=== PATIENT | male | born 1935 | race Caucasian/White ===

== ENCOUNTER 2017-02-24 15:37 | Inpatient (IN) | payer OTHER ==
[~2017-02-24] VITALS: Ht 170.2 cm; Wt 81.6 kg
[2017-02-24 15:40] VITALS: BP 163/96
--- NOTE | 2017-02-24 15:44 | NUR ---
81/M MAKAYLA C/O SOB x TODAY @ 0405. EMS STATES PT WAS SOB ON SCENE. PT WAS GIVEN x2 ALBUTEROL NEBULIZED TREATMENT AND STARTED ON CPAP EN ROUTE. PT HAS 20 GA IV RAC. PT TACYPNIC AT 29 BREATHS PER MIN, ACCESOTY MUSCLE USE, TRIPOD. LS-[place] WHEEZES AND TIGHT. SKIN WARM/DRY. REPORTS BEING INTUBATED MANY YEARS AGO FOR SAME PROBLEM. DENIES ANY CHEST PAIN. MILD LE EDEMA 1-2+, PT DENIES ANY CHF. ER MD AT BEDSIDE ROSE RT. PT PLACED ON CPAP. HX: ASTHMA AND HTN MEDS: ALBUTEROL
[2017-02-24] MEDS ORDERED: TERBUTALINE 1 MG/ML VIAL SUBQ ONE (15:45)
[2017-02-24] MEDS ORDERED: methylPREDNISolone SS 125 MG in WATER STERILE 2 ML IV ONE (15:45)
--- NOTE | 2017-02-24 15:45 | NUR ---
PT PLACED ON BIPAP SETTINGS ST IPAP 14 EPAP 6, R 10 AND FIO2 30%. PROTECTA-GEL PLACED UNDER MASK FOR SKIN PROTECTION. AWARE OF BIPAP SETTINGS. BIPAP IS PLUGGED INTO RED OUTLET WITH ALARMS ON AND FUNCTIONING.
[2017-02-24] MEDS ORDERED: ALBUTEROL SULFATE/IPRATROPIU 3 ML SOL IH ONE (16:15)
[2017-02-24 16:27] LABS: BASOPHILS # (AUTO) 0.1 K/uL (0.00-0.22); BASOPHILS % (AUTO) 0.7 % (0.0-2.0); EOSINOPHILS % (AUTO) 0.3 % (0.0-4.0); HEMATOCRIT 37.8 % (36-52); HEMOGLOBIN 12.4 g/dL (12.0-18.0); LYMPHOCYTES # (AUTO) 0.5 K/uL (2.0-11.5); LYMPHOCYTES % (AUTO) 4.1 % (20.5-51.1); MEAN CORPUSCULAR HEMOGLOBIN 31 pg (27-31); MEAN CORPUSCULAR HGB CONC 33 g/dL (33-37); MEAN CORPUSCULAR VOLUME 95 fL (80-94); MONOCYTES # (AUTO) 0.2 K/uL (0.8-1.0); MONOCYTES % (AUTO) 1.4 % (1.7-9.3); NEUTROPHILS # (AUTO) 10.8 K/uL (1.8-7.7); NEUTROPHILS % (AUTO) 93.5 % (42.2-75.2); PLATELET COUNT (AUTO) 214 K/uL (140-450); RED BLOOD CELL COUNT(AUTO) 3.98 MIL/uL (4.20-6.10); RED CELL DISTRIBUTION WIDTH 15.3 % (11.6-13.7); WHITE BLOOD COUNT (AUTO) 11.6 K/uL (4.8-10.8)
[2017-02-24] MEDS ORDERED: NAPR-54 PO ×2 (16:48)
[2017-02-24] MEDS ORDERED: FURO-572 PO (16:48)
[2017-02-24] MEDS ORDERED: PRED10TA5 PO (16:48)
[2017-02-24 16:49] LABS: PROTHROMBIN TIME 10.8 secs (10.8-13.4)
[2017-02-24] MEDS ORDERED: ACET-2619 PO (16:50)
[2017-02-24 16:54] LABS: ANION GAP 19.2 (8-16); ASPARTATE AMINOTRANSFERASE 13 U/L (15-37); CARBON DIOXIDE 22.8 mmol/L (21-32); CHLORIDE 106 mmol/L (98-107); CREATININE 1.6 mg/dL (0.7-1.3); GLUCOSE 210 mg/dL (74-106); SODIUM SERUM 144 mmol/L (136-145); TOTAL BILIRUBIN 0.6 mg/dL (0.0-1.0); UREA NITROGEN, BLOOD 27 mg/dL (7-18)
[2017-02-24] MEDS ORDERED: ACT30 PO (16:55)
[2017-02-24] MEDS ORDERED: NACL 0.9% 1,000 ML IV ONE ×2 (17:25)
[2017-02-24] MEDS ORDERED: CEFEPIME 1,000 MG in DEXTROSE 5% 50 ML IV ONE (17:25)
[2017-02-24] MEDS ORDERED: AZITHROMYCIN 500 MG in DEXTROSE 5% 250 ML IV ONE (17:25)
--- NOTE | 2017-02-24 17:41 | NUR ---
PT SITTING UP IN BED, REPORTS FEELINGBETTER, BUT THAT CPAP IS BOTHERING HIM, INFORMED HIM THATHE CAN NOT TAKE IT OUT-VERBALIZED UNDERSTANDING.
[2017-02-24] MEDS ORDERED: CEFEPIME 1,000 MG VIAL ONE (17:52)
[2017-02-24 17:53] VITALS: BP 125/53
[2017-02-24] MEDS ORDERED: AZITHROMYCIN 500 MG INJ VIAL IV ONE (17:53)
--- NOTE | 2017-02-24 18:21 | NUR ---
IV ANTIBIOTICS INFUSING WELL VIA PUMP, TOLERATING WELL.
[2017-02-24 18:49] VITALS: BP 140/59
--- NOTE | 2017-02-24 18:53 | NUR ---
PT RECEIVED FROM DAYSHIFT ON NOTED BIPAP SETTINGS. PT AWAKE AND ALERT WEARING LARGE FULL FACE MASK WITH PRO-GEL UNDER MASK. BREATH SOUNDS COARSE SCATTERED EXP WHEEZING, NON PROD COUGH. NO DISTRESS NOTED. BIPAP ALARMS ON AND AUDIBLE. BIPAP PLUGGED INTO RED ELECTRICAL OUTLET. WILL CONTINUE TO MONITOR.
[2017-02-24 19:00] LABS: BILIRUBIN,URINE NEGATIVE (NEGATIVE); BLOOD, URINE NEGATIVE (NEGATIVE); COLOR,URINE YELLOW (YELLOW); LEUKOCYTE ESTERASE ,URINE NEGATIVE (NEGATIVE); NITRITE, URINE NEGATIVE (NEGATIVE); PH,URINE 5.5 (5.0-9.0); UGLUCOSE NEGATIVE (NEGATIVE)
[2017-02-24 19:03] LABS: APPEARANCE,URINE CLEAR (CLEAR)
--- NOTE | 2017-02-24 19:25 | NUR ---
RECEIVED FROM ER PER TEMO AWAKE AND ALERT. DX. OF ASTHMA EXACERBATION RESPIRATORY FAILURE AND LACTIC ACIDOSIS. PT. PLACED ON BIPAP BY RESPIRATORY THERAPIST. PT. SPEAKS TURKMEN AND FAROESE. IVF SITE TO [facility] WITH IVF ANTIBIOTIC INFUSING. SKIN INTACT. TELEMETRY MONITORING. ORIENTED TO CALL LIGHT USE AND RAPID RESPONSE . BED ALARM ON.
[2017-02-24] MEDS ORDERED: NACL 0.9% 1,000 ML IV SCH (19:44)
[2017-02-24] MEDS ORDERED: HYDROcodone/APAP 7.5/325 MG 1 TAB PO PRN (19:45)
[2017-02-24] MEDS ORDERED: ONDANSETRON 4 MG/2 ML VIAL IVP PRN (19:45)
[2017-02-24] MEDS ORDERED: DEXTROSE 50% 50 ML SYR IVP PRN (19:45)
[2017-02-24] MEDS: ALBUTEROL SULFATE/IPRATROPIU 3 ML SOL IH SCH (20:05)
--- NOTE | 2017-02-24 20:07 | NUR ---
LACTIC ACID 4.5 AND RESIDENT MD LOU AWARE OF IT. RESPIRATORY THERAPIST IN HERE AND GIVING ALBUTEROL BREATHING TREATMENT ORDERED. 02 SAT 99% ,RATE 10 PER BIPAP. HR 82. CALL LIGHT WITH IN REACH. BED ALARM ON.
[2017-02-24] MEDS: DOCUSATE SODIUM 100 MG GELCAP PO SCH (20:15)
[2017-02-24] MEDS: methylPREDNISolone SS 125 MG/2 ML VIAL IVP SCH (20:15)
[2017-02-24 20:32] LABS: BARBITURATE, URINE NEG. ng/ml (NEG <=200); BENZODIAZEPINE, URINE NEG. ng/mL (NEG <=200); CANNABINOID, URINE NEG. ng/mL (NEG <=50); COCAINE, URINE NEG. ng/mL (NEG <=300); OPIATE, URINE NEG. ng/mL (NEG <=2000); PHENCYCLIDINE SCREEN,URINE NEG. ng/mL (NEG <=25)
[2017-02-24] MEDS: BLOOD GLUCOSE MONITORING 1 DEV DEV FS SCH (20:32)
[2017-02-24] MEDS: INSULIN LISPRO SLIDING SCALE 100 UNITS/ML VIAL SUBQ PRN (20:32)
[2017-02-24 20:41] VITALS: BP 136/72
[2017-02-24 20:44] LABS: FREE T4 (FREE THYROXINE) 0.71 ng/dL (0.76-1.46); MAGNESIUM 2.1 mg/dL (1.8-2.4); PHOSPHORUS 2.8 mg/dL (2.5-4.9); THYROID STIMULATING HORMONE 0.19 uIU/mL (0.34-3.74)
[2017-02-24] MEDS ORDERED: FUROSEMIDE 100 MG/10 ML VIAL IV SCH (21:25)
--- NOTE | 2017-02-24 21:30 | NUR ---
TRANSFERRED TO ICU FOR CONTINUITY OF CARE ORDERED SHARON PEREIRA./. AWAKE ALERT AND ON BIPAP. ABLE TO VERBALIZE NEEDS WELL. TRADITIONAL CHINESE HERBALIST.
--- NOTE | 2017-02-24 21:40 | NUR ---
BIPAP CHECKED. PT AWAKE, ABG DONE ON CURRENT BIPAP SETTINGS. RESULTS CALLED TO DR LOU, NO CHANGES ORDERED.
[2017-02-24 22:35] VITALS: BP 182/136
--- NOTE | 2017-02-24 22:35 | NUR ---
RECEIVED PT FROM TELE UNIT. PT NOTED WITH SOB. AFEBRILE. ELEVATED BP. PT ABLE TO MAKE NEEDS KNOWN. PT PUT ON BIPAP. OXYGEN SATURATION AT 100%. NO SIGNS OF DISTRESS NOTED. NO C/O PAIN, AND NO C/O NAUSEA/VOMITING. PT HAS PERIPHERAL IV ON LEFT AC 20G. PULSES PALPABLE. S1+S2 HEARD. ALL SAFETY PRECAUTIONS IN PLACE. BED AT LOW POSITION. CALL LIGHT WITHIN REACH. WILL CONTINUE TO MONITOR.
[2017-02-24] MEDS: ALBUTEROL SULFATE/IPRATROPIU 3 ML SOL IH PRN (22:46)
[2017-02-24 23:35] VITALS: BP 148/77
--- NOTE | 2017-02-24 23:37 | NUR ---
BIPAP CHECKED. PT ASLEEP, SLIGHT DIM EXP WHEEZING. NO CHANGES MADE AT THIS TIME. PT TOLERATING BIPAP WELL.
[2017-02-25] VITALS (21 sets, daily range): BP systolic 98–178; BP diastolic 39–104
--- NOTE | 2017-02-25 00:15 | NUR ---
CALLED JT AND INFORMED HER THAT SPOUSE WAS TRANSFERRED TO ICU. TEL# [phone].
--- NOTE | 2017-02-25 00:21 | NUR ---
PT AWAKE. STILL ON BIPAP. VS STABLE. NO CHANGE IN CONDITION AT THIS TIME. ASKED PT, "MARIA ELENA SANTIAGO?" AND PT RESPONDED "SI."; OXYGEN SATURATION AT 96% WHILE ON BIPAP. NO C/O PAIN. NO NAUSEA AND VOMITING NOTED. ALL SAFETY PRECAUTIONS IN PLACE. WILL CONTINUE TO MONITOR PT.
--- NOTE | 2017-02-25 02:09 | NUR ---
PT SITTING ON THE FOOT OF BED. PT INSIST TO BE IN THIS POSITION FOR IT FEELS MORE COMFORTABLE. NO CHANGE IN CONDITION AT THIS TIME. BREATHING WELL AND NO C/O OF DIFFICULTY. NO S/SX RESPIRATORY DISTRESS NOTED. STILL ON BIPAP WITH O2 SATURATION CURRENTLY AT 98%. VS STABLE AT THIS TIME. SINUS RHYTHM ON MONITOR. ALL SAFETY PRECAUTIONS IN PLACE. CALL LIGHT WITHIN REACH. WILL CONTINUE TO MONITOR.
[2017-02-25] MEDS: ALBUTEROL SULFATE/IPRATROPIU 3 ML SOL IH PRN ×2 (02:57→20:28)
--- NOTE | 2017-02-25 04:13 | NUR ---
CALLED DR LOU TO INFORM THAT RESIDENT HAS BEEN ASKING FOR BREATHING TREATMENT MORE FREQUENTLY. LAST BREATHING TREATMENT GIVEN ABOUT 1 HR AGO. PER RT BREATHING TX CANNOT BE GIVEN. PT OXYGEN SATURATION IS 93% AND RR 22. WILL RECEIVED NEW ORDER. WILL CONTINUE TO MONITOR PT.
--- NOTE | 2017-02-25 04:28 | NUR ---
DR BERKOWITZ AT BEDSIDE TO SEE PT. GAVE UPDATE REGARDING PT. WILL FOLLOW-UP WITH ANY NEW ORDER.
[2017-02-25] MEDS ORDERED: LORazepam 1 MG TAB ONE (04:31)
[2017-02-25] MEDS: LORazepam 1 MG TAB PO PRN ×2 (04:32→21:00)
[2017-02-25] MEDS: methylPREDNISolone SS 125 MG/2 ML VIAL IVP SCH ×2 (04:32→13:39)
--- NOTE | 2017-02-25 04:35 | NUR ---
PT NOTED TO HAVE INCREASED ANXIETY. SCHEDULED MEDICATIONS ADMINISTERED. NO CHANGE IN CONDITION AT THIS TIME. VS STABLE. WILL CONTINUE TO MONITOR PT.
--- NOTE | 2017-02-25 06:03 | NUR ---
PT SITTING BY THE FOOT OF BED. NO CHANGE IN CONDITION AT THIS TIME. VS STABLE. NO SIGNS OF DISTRESS NOTED. ALL SAFETY PRECAUTIONS IN PLACE. CALL LIGHT WITHIN REACH. WILL CONTINUE TO MONITOR PT.
--- NOTE | 2017-02-25 06:28 | NUR ---
PATIENT HAS BEEN SCREENED AND CATEGORIZED MODERATE NUTRITION RISK. PATIENT WILL BE SEEN WITHIN 3-5 DAYS OF ADMISSION. 02/26/17-02/28/17 SRAVANTHI DEL ANGEL MS, RDN
[2017-02-25 07:06] LABS: HEMATOCRIT 40.2 % (36-52); HEMOGLOBIN 13.4 g/dL (12.0-18.0); MEAN CORPUSCULAR HEMOGLOBIN 32 pg (27-31); MEAN CORPUSCULAR HGB CONC 33 g/dL (33-37); MEAN CORPUSCULAR VOLUME 95 fL (80-94); PLATELET COUNT (AUTO) 222 K/uL (140-450); RED BLOOD CELL COUNT(AUTO) 4.24 MIL/uL (4.20-6.10); RED CELL DISTRIBUTION WIDTH 15.4 % (11.6-13.7)
--- NOTE | 2017-02-25 07:13 | NUR ---
GIVEN REPORT TO SONNY TORRES FOR CONTINUITY OF CARE. VS STABLE AT THIS TIME.
--- NOTE | 2017-02-25 07:15 | NUR ---
PT RESTING ON BED LEANING ON THE BEDSIDE TABLE. A/O X4, ABLE TO VERBALIZE NEEDS. SR ON MONITOR. ON BIPAP AT 30%. SKIN DRY AND WARM TO TOUCH. PUPILS REACTIVE TO LIGHT. LEFT SIDED WHEEZING ON ON LUNGS AUSCULTATION. LEFT AC 20 G INTACT. ABDOMEN SOFT, ROUND AND NON-TENDER. HYPOACTIVE BOWEL SOUND. BLE EDEMATOUS. CALL LIGHT WITHIN REACH. BED IN LOW POSITION LOCKED. WILL CONTINUE TO MONITOR.
[2017-02-25 07:23] LABS: ANION GAP 15.7 (8-16); CARBON DIOXIDE 26.4 mmol/L (21-32); CHLORIDE 106 mmol/L (98-107); CREATININE 1.3 mg/dL (0.7-1.3); GLUCOSE 163 mg/dL (74-106); POTASSIUM 4.1 mmol/L (3.5-5.1); SODIUM SERUM 144 mmol/L (136-145); UREA NITROGEN, BLOOD 29 mg/dL (7-18)
[2017-02-25] MEDS: ALBUTEROL SULFATE/IPRATROPIU 3 ML SOL IH SCH ×4 (07:24→18:44)
[2017-02-25] MEDS: BUDESONIDE 0.5 MG/2 ML NEBU INH SCH ×2 (07:24→18:26)
[2017-02-25 07:26] LABS: CHOL/HDL RATIO 1.5 (1-4.5); MAGNESIUM 2.3 mg/dL (1.8-2.4); PHOSPHORUS 3.3 mg/dL (2.5-4.9)
[2017-02-25 07:38] LABS: LYMPHOCYTES % (MANUAL) 8 % (20-46); MONOCYTES % (MANUAL) 2 % (5-12)
--- NOTE | 2017-02-25 07:51 | NUR ---
PT OFF BIPAP TO EAT
--- NOTE | 2017-02-25 08:00 | NUR ---
PT DEANNA SALGUERO CALLED. UPDATED WITH PT CONDITION.
[2017-02-25] MEDS: LACTOBACILLUS RHAMNOSUS GG 1 EACH CAP PO SCH (08:11)
[2017-02-25] MEDS: PIOGLITAZONE 30 MG TAB PO SCH (08:11)
[2017-02-25] MEDS: DOCUSATE SODIUM 100 MG GELCAP PO SCH ×2 (08:11→20:40)
[2017-02-25] MEDS: BLOOD GLUCOSE MONITORING 1 DEV DEV FS SCH ×4 (08:17→20:40)
[2017-02-25] MEDS: INSULIN LISPRO SLIDING SCALE 100 UNITS/ML VIAL SUBQ PRN ×4 (08:18→20:46)
[2017-02-25] MEDS ORDERED: FUROSEMIDE 20 MG TAB PO SCH (09:00)
--- NOTE | 2017-02-25 09:22 | NUR ---
PT BACK ON BIPAP
--- NOTE | 2017-02-25 09:30 | NUR ---
PT STARTED HAVING TACHYCARDIA WHEN EATING BREAKFAST. BIPAP WAS OFF. KEPT PT ON O2 2 LTR/MIN VIA N/C. PT ON CONTINUOUS MONITORING.
--- NOTE | 2017-02-25 10:03 | NUR ---
PT ON ST WITH OCCASIONAL COUPLET PVCS. DR. JORDAN MADE AWARE ABOUT PVS. NO CHANGE IN LOC. PT ON CONTINUOUS MONITORING.
--- NOTE | 2017-02-25 10:04 | NUR ---
MEN'S LOCKER ROOM ATTENDANT SHOWS A FIB WITH RVR HR 120 TO 160/MIN. BP 148/98. PT ON BIPAP. SITTING AT EDGE OF BED. DENIES ANY DISCOMFORTS. DR BERKOWITZ WANTS EKG DONE WHEN PT IS ON AFIB RHYTHM WITH RVR.
--- NOTE | 2017-02-25 10:10 | NUR ---
CARDIO HERE TO DO EKG BUT PT IS BACK TO SR WITH OCC PVCS. UNABLE TO DO EKG.
--- NOTE | 2017-02-25 11:34 | NUR ---
PT STILL ON BIPAP AND TOLERATING WELL. HHN TX OF [place] GIVEN. WILL CONTINUE TO MONITOR.
--- NOTE | 2017-02-25 12:50 | NUR ---
PT RESTING IN BED. NO ACUTE DISTRESS NOTED. SR ON MONITOR. NO CHANGE IN LOC. WILL CONTINUE TO MONITOR.
--- NOTE | 2017-02-25 14:48 | NUR ---
DR. GRANADOS AND DR. CARVALHO IN TO SEE PT. REPORTED PT CONDITION AND MADE AWARE ABOUT EPISODES OF TACHYCARDIA HR 129-161 AND AFIB, IRREGURAL CARDIAC RHYTHM WITH PVCS. PT SITTING BEDSIDE. DENIES ANY CHEST PAIN, DISCOMFORT AT THIS TIME. NO NEW ORDER AT THIS TIME. WILL FOLLOW UP ON ORDER.
--- NOTE | 2017-02-25 15:34 | NUR ---
PT SITTING IN BED LEANIND TO BEDSIDE TABLE. IREGULAR SR WITH OCCASIONAL PVC ON MONITOR. NO ACUTE DISTRESS NOTED. NO CHANGE IN LOC. NO C/O CHEST PAIN. CALL LIGHT WITHIN REACH. BED IN LOW POSITION, LOCKED. WILL CONTINUE TO MONITOR.
--- NOTE | 2017-02-25 17:27 | NUR ---
DR. EARL IN TO SEE PT. NOTED ABOUT PT CONDITION. HEART RATE 143 AND A FIB. PT SITTING ON EDGE OF THE BED LEANING ON BEDSIDE TABLE. NO C/O CHEST PAIN. A. FIB WITH PVC ON MONITOR. PT ON CONTINUOUS MONITOR.
[2017-02-25] MEDS: DILTIAZEM 30 MG TAB PO SCH ×2 (17:48→23:30)
--- NOTE | 2017-02-25 18:40 | NUR ---
BP 146/104. DR. RICCI NOTIFIED. PT SITTING IN EDGE OF THE BED LEANING ON BEDSIDE TABLE. NO ACUTE DISTRESS NOTED. DENIES PAIN/ DISCOMFORT. WILL CONTINUE TO MONITOR.
--- NOTE | 2017-02-25 18:42 | NUR ---
BP 157/64.
--- NOTE | 2017-02-25 19:25 | NUR ---
REPORT GIVEN TO DEDRICK SOL RN NAMRATA FOR CONTINUITY OF CARE. PT ON STABLE CONDITION MAKING CONVERSATION WITH FAMILY. FAMILY AT BEDSIDE.
--- NOTE | 2017-02-25 19:26 | NUR ---
RECEIVED REPORT FORM AM NURSE AT BEDSIDE, PT IS AAOX4, ABLE TO FOLLOW COMMANDS AND MAKE NEEDS KNOWN. DENIES PAIN, NO S/S OF DISTRESS, WHEEZING LUNG SOUNDS, ON BIPAP WITH FIO2 30, DENIES CHEST PAIN, A-FIB ON INSTRUMENT AND ELECTRICAL TECHNICIAN, SOFT ABDOMEN WITH ACTIVE BOWEL SOUNDS, VOID TO URINAL, ABLE TO MOVE ALL EXTREMITIES, SLIGHT WEAKNESS NOTED. PERIPHERAL LINE TO LEFT AC 20GA, PATENT AND SL. SKIN IN INTACT, WARM AND DRY TO TOUCH. HOB ELEVATED 30 DEGREES, SAFETY PRECAUTION IN PLACE, WILL CONTINUE TO MONITOR.
--- NOTE | 2017-02-25 19:30 | NUR ---
DR. PEREIRA CAME TO SEE PT AT BEDSIDE, NO CHANGE OF ORDER AT THIS TIME.
--- NOTE | 2017-02-25 20:30 | NUR ---
ACCU CHECK PERFORMED WITH RESULT OF 169MG/DL, 2 UNITS OF INSULIN GIVEN.
[2017-02-25] MEDS: methylPREDNISolone SS 40 MG/ML VIAL IVP SCH (20:40)
--- NOTE | 2017-02-25 22:00 | NUR ---
PT IS ASLEEP IN BED WITH BIPAP, NO S/S OF DISTRESS, VSS.
[2017-02-26] VITALS (9 sets, daily range): BP systolic 99–133; BP diastolic 49–80
--- NOTE | 2017-02-26 | NUR ---
PT IS SITTING UP, ON O2 VIA NC AT THIS TIME, ELEVATED HR, CARDIZEM GIVEN, WILL CONTINUE TO MONITOR.
--- NOTE | 2017-02-26 02:00 | NUR ---
PT IS SITTING IN BED, USING HIS OWN HOME INHALER MEDICATION, EXPLAINED RISK AND BENEFIT OF OVERDOSE OF MEDICATION, PT REFUSED TO TURN IN HIS OWN MEDICATION.
--- NOTE | 2017-02-26 04:00 | NUR ---
PT IS ASLEEP IN BED QUIETLY, VSS, NO S/S OF DISTRESS.
[2017-02-26] MEDS: methylPREDNISolone SS 40 MG/ML VIAL IVP SCH ×2 (04:25→12:35)
[2017-02-26 04:53] LABS: BASOPHILS # (AUTO) 0.1 K/uL (0.00-0.22); BASOPHILS % (AUTO) 0.3 % (0.0-2.0); EOSINOPHILS # (AUTO) 0.2 K/uL (0-0.4); EOSINOPHILS % (AUTO) 0.8 % (0.0-4.0); HEMATOCRIT 37.3 % (36-52); HEMOGLOBIN 12.7 g/dL (12.0-18.0); LYMPHOCYTES # (AUTO) 0.7 K/uL (2.0-11.5); LYMPHOCYTES % (AUTO) 3.1 % (20.5-51.1); MEAN CORPUSCULAR HEMOGLOBIN 32 pg (27-31); MEAN CORPUSCULAR HGB CONC 34 g/dL (33-37); MEAN CORPUSCULAR VOLUME 94 fL (80-94); MONOCYTES % (AUTO) 4.5 % (1.7-9.3); NEUTROPHILS # (AUTO) 19.4 K/uL (1.8-7.7); PLATELET COUNT (AUTO) 214 K/uL (140-450); RED BLOOD CELL COUNT(AUTO) 3.99 MIL/uL (4.20-6.10); RED CELL DISTRIBUTION WIDTH 15.2 % (11.6-13.7); WHITE BLOOD COUNT (AUTO) 21.4 K/uL (4.8-10.8)
[2017-02-26] MEDS: DILTIAZEM 30 MG TAB PO SCH ×4 (05:26→23:01)
[2017-02-26 05:35] LABS: NEUTROPHILS % (AUTO) 91.3 % (42.2-75.2)
[2017-02-26 05:57] LABS: ANION GAP 11.7 (8-16); CARBON DIOXIDE 28.3 mmol/L (21-32); CHLORIDE 108 mmol/L (98-107); CREATININE 1.2 mg/dL (0.7-1.3); GLUCOSE 152 mg/dL (74-106); SODIUM SERUM 144 mmol/L (136-145); UREA NITROGEN, BLOOD 40 mg/dL (7-18)
[2017-02-26 06:00] LABS: MAGNESIUM 2.4 mg/dL (1.8-2.4); PHOSPHORUS 4.1 mg/dL (2.5-4.9)
--- NOTE | 2017-02-26 06:00 | NUR ---
PT IS SITTING ON THE SIDE OF BED, NO S/S OF DISTRESS, VSS.
[2017-02-26] MEDS: BLOOD GLUCOSE MONITORING 1 DEV DEV FS SCH ×4 (06:52→21:12)
[2017-02-26] MEDS: INSULIN LISPRO SLIDING SCALE 100 UNITS/ML VIAL SUBQ PRN ×4 (06:55→21:18)
--- NOTE | 2017-02-26 07:15 | NUR ---
REPORT GIVEN TO SONNY STAFFORD AT BEDSIDE FOR CONTINUE OF CARE, PT IS IN STABLE CONDITION AT THIS TIME.
--- NOTE | 2017-02-26 07:20 | NUR ---
REPORT RECEIVED FROM PLATE AND FRAME FILTER OPERATOR RN. PT IS AWAKE, AAOX4. SLOVENIAN SPEAKING, ABLE TO MAKE NEEDS KNOWN. A. FIB ON MONITOR. PT IS ON O2 AT 3 LPM/ NC, O2 SAT 95%. NO SOB OR DISTRESS NOTED. DENIES CHEST PAIN OR DISCOMFORT. LUNGS SOUND DIMINISHED. ABDOMEN SOFT, NONTENDER, WITH ACTIVE BOWEL SOUNDS. PERIPHERAL IV G20 TO LEFT ANTECUBITAL PATENT AND INTACT. PT USES URINAL TO VOID. ABLE TO MOVE ALL EXTREMITIES. SKIN IS DRY AND WARM TO TOUCH. AFEBRILE. HOB 30 DEGREES, BED IN LOWEST POSITION AND CALL LIGHT WITHIN REACH. SAFETY MEASURES IN PLACE. NEEDS WELL ATTENDED. WILL CONTINUE TO MONITOR.
[2017-02-26] MEDS: BUDESONIDE 0.5 MG/2 ML NEBU INH SCH ×2 (07:46→20:01)
[2017-02-26] MEDS: ALBUTEROL SULFATE/IPRATROPIU 3 ML SOL IH SCH ×3 (07:46→15:29)
--- NOTE | 2017-02-26 07:51 | NUR ---
BREATHING TX ADMINISTERED. PT IS ON 2L NC. BIPAP IS BEDSIDE AND NOT INDICATED AT THIS TIME. PT IS SITTING UP AT THE SIDE OF HIS BED EATING BREAKFAST NOT SOB AND NOT IN RESPIRATORY DISTRESS. WILL CONTINUE TO MONITOR.
[2017-02-26] MEDS: DOCUSATE SODIUM 100 MG GELCAP PO SCH ×2 (08:29→21:15)
[2017-02-26] MEDS: FUROSEMIDE 20 MG/2 ML VIAL IVP SCH (08:30)
[2017-02-26] MEDS: PIOGLITAZONE 30 MG TAB PO SCH (08:30)
[2017-02-26] MEDS: LACTOBACILLUS RHAMNOSUS GG 1 EACH CAP PO SCH (08:40)
--- NOTE | 2017-02-26 08:41 | NUR ---
MEDICATIONS ADMINISTERED. PT TOLERATED WELL.
--- NOTE | 2017-02-26 10:00 | NUR ---
PT RESTING COMFORTABLY AT THIS TIME. NO SOB OR ACUTE DISTRESS NOTED. VITAL SIGNS STABLE. WILL CONTINUE TO MONITOR.
--- NOTE | 2017-02-26 11:00 | NUR ---
DR. PEREIRA IN TO SEE AND EXAMINE PT. WILL FOLLOW UP ON ORDERS.
--- NOTE | 2017-02-26 12:00 | NUR ---
HR 66, BP 114/64. CARDIZEM HELD.
--- NOTE | 2017-02-26 14:20 | NUR ---
DR. VALENTE IN TO SEE PT. WILL FOLLOW UP ON ORDERS.
--- NOTE | 2017-02-26 14:40 | NUR ---
FAMILY AT BEDSIDE. DR. CARVALHO IN TO SEE PT AND TALKS TO FAMILY. VITAL SIGNS STABLE. PT IS ON ROOM AIR, O2 SAT 96%. NO SOB OR ACUTE DISTRESS. WILL CONTINUE TO MONITOR.
--- NOTE | 2017-02-26 16:51 | NUR ---
PT IS RESTING COMFORTABLY AT THIS TIME. NO S/SX OF ACUTE DISTRESS. SAFETY PRECAUTIONS IN PLACE. WILL CONTINUE TO MONITOR.
--- NOTE | 2017-02-26 19:35 | NUR ---
REPORT GIVEN TO SONNY MEDEROS AT TELEMETRY. PT WILL BE TRANSFERRED TO TELEMETRY ROOM 110B. PT IS IN STABLE CONDITION.
--- NOTE | 2017-02-26 19:41 | NUR ---
SPOKE WITH PT'S SON, JOSE M AND INFORMED FAMILY THAT PT HAS BEEN TRANSFERRED TO TELEMETRY ROOM 110B.
--- NOTE | 2017-02-26 21:10 | NUR ---
DR NUNN NOTIFIED OF PATIENT'S LOW HEART RATE OF 41. DR NUNN CHECKED ON PT AND ASSESSED PT. NO NEW ORDERS WERE GIVEN . PT STATES HE FEELS FINE, WILL CONTINUE TO MONITOR.
[2017-02-26] MEDS: ACETAMINOPHEN 325 MG TAB PO PRN (23:00)
[2017-02-27] VITALS: BP 111/54
--- NOTE | 2017-02-27 03:33 | NUR ---
PT IS SITTING UP IN BED, RESTING IS HEAD ON TABLE. NO SIGNS OF ACUTE DISTRESS NOTED, RESPIRATIONS EVEN AND UNLABORED. BED IN LOW POSITION, BILATERAL HALF SIDE RAILS UP, CALL LIGHT WITHIN REACH, WILL CONTINUE TO MONITOR.
[2017-02-27 04:00] VITALS: BP 122/63
[2017-02-27] MEDS: guaiFENesin/CODEINE 100/10MG 5 ML UDC PO PRN (04:50)
--- NOTE | 2017-02-27 05:25 | NUR ---
NOTIFIED DR. NUNN ABOUT PATIENT'S INCREASED HEART RATE OF 150. DR. RICHARDS MADE AWARE AND ORDERED AN EKG STAT. PT STATES HE FEEL WELL, NO SOB OR CHEST PAIN. VITAL SIGNS BP 125/88, HR 149, O2 97%, RR 22 TEMP 98.9. PT IS SITTING UP IN BED, NO SIGNS OF ACUTE DISTRESS NOTED, RESPIRATIONS EVEN AND UNLABORED, WILL CONTINUE TO MONITOR.
[2017-02-27] MEDS: DILTIAZEM 30 MG TAB PO SCH ×3 (05:27→17:36)
[2017-02-27] MEDS: BLOOD GLUCOSE MONITORING 1 DEV DEV FS SCH ×4 (06:35→21:38)
[2017-02-27] MEDS: ALBUTEROL SULFATE/IPRATROPIU 3 ML SOL IH SCH ×5 (06:42→19:44)
[2017-02-27] MEDS: BUDESONIDE 0.5 MG/2 ML NEBU INH SCH ×2 (06:51→19:44)
--- NOTE | 2017-02-27 07:20 | NUR ---
ENDORSED PT TO AM NURSE FOR CONTINUITY OF CARE. PT IS IN STABLE CONDITION.
--- NOTE | 2017-02-27 07:21 | NUR ---
RECEIVED REPORT FROM THE BIOSOLIDS MANAGEMENT TECHNICIAN NURSE AT BEDSIDE FOR CONTINUITY OF CARE. PT IS SITTING ON THE SIDE OF THE BED, FEET DANGLING, HOVERED OVER THE SIDE TABLE D/T DIFFICULTY BREATHING. PER BIOSOLIDS MANAGEMENT TECHNICIAN NURSE, PT HAS BEEN IN THAT POSITION ALL LAST NIGHT. PT HAS A NC O2 3L. PER BIOSOLIDS MANAGEMENT TECHNICIAN PT AMBULATES WITH ASSIST. PT USES THE URINAL. SKIN IS INTACT. PT HAS AN IV L HAND 24G TKO NS AT 3ML/HR. PT'S V/S WITHIN NORMAL RANGE. PT'S LAB: WBC IS HIGH AT 20.1 BUN/CREAT 48/1.2. ALL OTHER LABS ARE UNREMARKABLE. PT C/O A HEADACHE. WILL ADMINISTER TYLENOL ALONG WITH MORNING MEDS.
[2017-02-27 07:28] LABS: HEMATOCRIT 39.8 % (36-52); HEMOGLOBIN 13.2 g/dL (12.0-18.0); MEAN CORPUSCULAR HEMOGLOBIN 32 pg (27-31); MEAN CORPUSCULAR HGB CONC 33 g/dL (33-37); MEAN CORPUSCULAR VOLUME 95 fL (80-94); PLATELET COUNT (AUTO) 232 K/uL (140-450); RED BLOOD CELL COUNT(AUTO) 4.17 MIL/uL (4.20-6.10); RED CELL DISTRIBUTION WIDTH 15.4 % (11.6-13.7); WHITE BLOOD COUNT (AUTO) 20.1 K/uL (4.8-10.8)
[2017-02-27 07:44] LABS: ANION GAP 13.3 (8-16); CARBON DIOXIDE 27.6 mmol/L (21-32); CHLORIDE 104 mmol/L (98-107); CREATININE 1.2 mg/dL (0.7-1.3); GLUCOSE 138 mg/dL (74-106); POTASSIUM 3.9 mmol/L (3.5-5.1); SODIUM SERUM 141 mmol/L (136-145); UREA NITROGEN, BLOOD 48 mg/dL (7-18)
[2017-02-27 07:59] LABS: MAGNESIUM 2.8 mg/dL (1.8-2.4); PHOSPHORUS 3.6 mg/dL (2.5-4.9)
[2017-02-27 08:00] VITALS: BP 144/66
[2017-02-27 08:10] LABS: LYMPHOCYTES % (MANUAL) 6 % (20-46); MONOCYTES % (MANUAL) 9 % (5-12)
[2017-02-27] MEDS: LACTOBACILLUS RHAMNOSUS GG 1 EACH CAP PO SCH (08:16)
[2017-02-27] MEDS: ACETAMINOPHEN 325 MG TAB PO PRN ×2 (08:16→22:08)
[2017-02-27] MEDS: PIOGLITAZONE 30 MG TAB PO SCH (08:17)
[2017-02-27] MEDS: FUROSEMIDE 20 MG/2 ML VIAL IVP SCH (08:17)
[2017-02-27] MEDS: DOCUSATE SODIUM 100 MG GELCAP PO SCH ×2 (08:17→21:27)
--- NOTE | 2017-02-27 08:32 | NUR ---
ADMINISTERED MORNING MEDS. PATIENT TOLERATED THEM WELL. PATIENT SITTING ON SIDE OF BED. NO SIGNS OF DISTRESS NOTED. SAFETY PRECAUTIONS ON. BED ON LOWEST SETTING, CALL LIGHT WITHIN REACH. WILL CONTINUE TO MONITOR PATIENT.
--- NOTE | 2017-02-27 09:35 | NUR ---
ADMINISTERED ABX. PT TOLERATING WELL. PT CONTINUES TO SIT ON SIDE OF BED, DANGLING FEET. PT PREFERS TO DO SO, D/T BREATHING. NC STILL INTACT. TELE MONITOR STATED THAT PT'S HR WENT UP TO 150 AT ONE TIME. CHECKED ON PT. ASYMPTOMATIC. WILL CONTINUE TO MONITOR PT.
[2017-02-27 12:00] VITALS: BP 118/67
--- NOTE | 2017-02-27 12:00 | NUR ---
BLOOD SUGAR RESULT 143. VS WNL. PATIENT SITTING ON SIDE OF BED WATCHING TV. NO SIGNS OF DISTRESS OR SOB NOTED. SAFETY PRECAUTIONS IN PLACE. CALL LIGHT WITHIN REACH. WILL CONTINUE TO MONITOR PATIENT.
--- NOTE | 2017-02-27 13:22 | NUR ---
PATIENT SITTING ON SIDE OF BED WATCHING TV. NO SIGNS OF DISTRESS OR SOB NOTED. SAFETY PRECAUTIONS IN PLACE. CALL LIGHT WITHIN REACH. WILL CONTINUE TO MONITOR PATIENT.
--- NOTE | 2017-02-27 14:28 | NUR ---
PT VISITING WITH FAMILY. NO SIGNS OF DISTRESS. NO COMPLAINTS. WILL CONTINUE TO MONITOR PT.
--- NOTE | 2017-02-27 15:03 | NUR ---
NO HHN TX GIVEN DUE TO HIGH HEART OF 161 O2 SAT OF 95% RR 20 WITH FAMILY AT BEDSIDE, RN JACKSON NOTIFIED
[2017-02-27 16:00] VITALS: BP 146/66
[2017-02-27] MEDS ORDERED: NACL 0.9% 1,000 ML IV SCH (16:45)
--- NOTE | 2017-02-27 17:38 | NUR ---
ORDERED MED ADMINISTERED. PATIENT TOLERATED IT WELL. PATIENT IS SITTING ON SIDE OF BED, LEGS DANGLING. NO SIGNS OF DISTRESS OR SOB NOTED. PATIENT DENIES PAIN. SAFETY PRECAUTIONS IN PLACE. CALL LIGHT WITHIN REACH. WILL CONTINUE TO MONITOR PATIENT.
[2017-02-27] MEDS ORDERED: NACL 0.9% 250 ML IV SCH (18:00)
[2017-02-27] MEDS ORDERED: NACL 0.9% 100 ML IV SCH (18:00)
[2017-02-27] MEDS ORDERED: DILTIAZEM 30 MG TAB PO SCH (18:00)
[2017-02-27] MEDS ORDERED: PRED50TA3 PO (18:06)
[2017-02-27] MEDS ORDERED: FUROSEMIDE 40 MG/4 ML VIAL IVP SCH (18:45)
--- NOTE | 2017-02-27 19:20 | NUR ---
REPORT GIVEN TO OPTOMETRIC AIDE RN AT BEDSIDE FOR CONTINUITY OF CARE. PATIENT IN STABLE CONDITION.
--- NOTE | 2017-02-27 19:25 | NUR ---
RECEIVED PT IN STABLE CONDITION FROM AM NURSE. AWAKE,ALERT AND ORIENTED X4. TELUGU SPEAKING. ON TELE-A FIB UNCONTROLLED. ON O22L/NC . O2 SAT 96%. . WITH NO C/O ANY DISCOMFORT NOR PAIN NOTED AT THIS TIME. PT ABLE TO GET UP IN BED , SITTING ON SIDE OF BED. . GETTING BREATHING TREATMENT. VITAL SIGNS TAKEN . STABLE. WITH HL ON THE LT HAND #24. CLEAR AND PATENT. WITH 1+ PITTING EDEMA ON [place] FEET. PLAN OF CARE DISCUSSED AND VERBALIZED UNDERSTANDING. CALL LIGHT AND URINAL PLACED WITHIN EASY REACH. FREQUENT ROUNDS NEEDED. WILL CONTINUE TO MONITOR.
[2017-02-27 20:00] VITALS: BP 144/71
[2017-02-27] MEDS: INSULIN LISPRO SLIDING SCALE 100 UNITS/ML VIAL SUBQ PRN (21:39)
--- NOTE | 2017-02-27 21:39 | NUR ---
BLOOD SUGAR WAS CHECKED RESULT 186. INSULIN COVERAGE SUBQ GIVEN. PROVIDED WITH SOME SNACK. WILL CONTINUE TO MONITOR.
[2017-02-28] MEDS ORDERED: DILTIAZEM 30 MG TAB PO SCH
[2017-02-28] MEDS: guaiFENesin/CODEINE 100/10MG 5 ML UDC PO PRN ×2 (00:29→18:02)
--- NOTE | 2017-02-28 00:29 | NUR ---
PT AWAKE, NEED COUGH MEDICINE. GIVEN ORDERED. WILL CONTINUE TO MONITOR.
[2017-02-28 00:37] VITALS: BP 123/81
[2017-02-28 03:02] VITALS: BP 132/88
--- NOTE | 2017-02-28 03:02 | NUR ---
MONITOR SHOWED 2:1 hr 160. CHECKED ON PT . SITTING ON THE SIDE OF THE BED. VITAL SIGNS TAKEN. DENIES ANY CHEST PAIN OR DISCOMFORT. BUT STILL PAGED DR. HODGE TO LET HIM KNOW ABOUT CHANGE ON HR. WILL WAIT FOR CALL BACK.
--- NOTE | 2017-02-28 03:22 | NUR ---
DR. HODGE NO CALL BACK YET. SO PAGED DR. NUNN , RESIDENT. CAME AND CHECKED PT. PT NO C/O ANY PALPITATION OR CHEST PAIN . ONLY C/O COUGH. NO NEW ORDER MADE.
[2017-02-28] MEDS ORDERED: guaiFENesin/CODEINE 100/10MG 5 ML UDC PO SCH (03:35)
--- NOTE | 2017-02-28 03:35 | NUR ---
PAGED AGAIN DR. NUNN,RESIDENT FOR PT WANTS COUGH MEDICINE AND IT IS NOT DUE YET. HE SAID HE WILL MAKE ORDER .
--- NOTE | 2017-02-28 04:05 | NUR ---
PT BACK TO BED . FERNANDEZ SAID HE WILL TRY TO GET BACK TO SLEEP. PROVIDED WITH WARM BLANKET.
[2017-02-28] MEDS: BLOOD GLUCOSE MONITORING 1 DEV DEV FS SCH ×4 (06:16→20:20)
--- NOTE | 2017-02-28 06:16 | NUR ---
BLOOD SUGAR WAS CHECKED THIS AM RESULT 110. NO INSULIN COVERAGE.
[2017-02-28] MEDS: ALBUTEROL SULFATE/IPRATROPIU 3 ML SOL IH PRN ×2 (07:12→18:51)
[2017-02-28] MEDS: BUDESONIDE 0.5 MG/2 ML NEBU INH SCH ×2 (07:18→18:51)
--- NOTE | 2017-02-28 07:20 | NUR ---
ENDORSED PT IN STABLE CONDITION TO AM NURSE.
--- NOTE | 2017-02-28 07:21 | NUR ---
RECEIVED REPORT FROM THE INSTANT PRINTER OPERATOR NURSE AT BEDSIDE FOR CONTINUITY OF CARE. UPDATED THE BOARD. PT IS SITTING ON THE SIDE OF THE BED, FEET DANGLING, HOVERED OVER THE SIDE TABLE RECEIVING BREATHING TREATMENT. PT HAS A NC O2 3L. PT AMBULATES WITH ASSIST. PT USES THE URINAL. SKIN IS INTACT. PT HAS AN IV L HAND 24G TKO NS AT 3ML/HR. PT'S V/S WITHIN NORMAL RANGE. SAFETY PRECAUTIONS IN PLACE, BED ON LOWEST SETTING, CALL LIGHT WITHIN REACH. WILL CONTINUE TO MONITOR PATIENT.
[2017-02-28 08:00] VITALS: BP 125/82
[2017-02-28 08:13] LABS: BASOPHILS # (AUTO) 0.1 K/uL (0.00-0.22); BASOPHILS % (AUTO) 0.8 % (0.0-2.0); EOSINOPHILS % (AUTO) 0.3 % (0.0-4.0); HEMATOCRIT 42.9 % (36-52); HEMOGLOBIN 14.1 g/dL (12.0-18.0); LYMPHOCYTES # (AUTO) 0.7 K/uL (2.0-11.5); LYMPHOCYTES % (AUTO) 6.1 % (20.5-51.1); MEAN CORPUSCULAR HEMOGLOBIN 32 pg (27-31); MEAN CORPUSCULAR HGB CONC 33 g/dL (33-37); MEAN CORPUSCULAR VOLUME 95 fL (80-94); MONOCYTES # (AUTO) 1.2 K/uL (0.8-1.0); MONOCYTES % (AUTO) 10.3 % (1.7-9.3); NEUTROPHILS % (AUTO) 82.5 % (42.2-75.2); PLATELET COUNT (AUTO) 236 K/uL (140-450); RED CELL DISTRIBUTION WIDTH 14.9 % (11.6-13.7)
[2017-02-28] MEDS: FUROSEMIDE 20 MG/2 ML VIAL IVP SCH (08:44)
[2017-02-28 08:45] LABS: CARBON DIOXIDE 27.4 mmol/L (21-32); CHLORIDE 106 mmol/L (98-107); CREATININE 1.1 mg/dL (0.7-1.3); GLUCOSE 119 mg/dL (74-106); POTASSIUM 3.4 mmol/L (3.5-5.1); SODIUM SERUM 143 mmol/L (136-145); UREA NITROGEN, BLOOD 41 mg/dL (7-18)
[2017-02-28] MEDS: DOCUSATE SODIUM 100 MG GELCAP PO SCH ×2 (08:45→21:00)
[2017-02-28] MEDS: PIOGLITAZONE 30 MG TAB PO SCH (08:45)
[2017-02-28] MEDS: LACTOBACILLUS RHAMNOSUS GG 1 EACH CAP PO SCH (08:45)
[2017-02-28] MEDS: methylPREDNISolone SS 125 MG/2 ML VIAL IVP SCH ×2 (08:46→20:22)
--- NOTE | 2017-02-28 08:56 | NUR ---
ASSISTED PATIENT TO BATHROOM. ADMINISTERED MORNING MEDS. PATIENT TOLERATED THEM WELL. NO SIGNS OF DISTRESS OR SOB NOTED. SAFETY PRECAUTIONS IN PLACE. CALL LIGHT WITHIN REACH. WILL CONTINUE TO MONITOR PATIENT.
[2017-02-28] MEDS ORDERED: methylPREDNISolone SS 125 MG/2 ML VIAL IVP SCH (09:30)
[2017-02-28] MEDS ORDERED: BISACODYL 10 MG SUPP RC PRN (09:40)
[2017-02-28] MEDS ORDERED: DILTIAZEM 25 MG/5 ML VIAL IVP SCH ×2 (09:45→15:00)
[2017-02-28] MEDS ORDERED: POTASSIUM CHLORIDE 20% 40 MEQ/15 ML UDC PO SCH (09:45)
[2017-02-28] MEDS ORDERED: FUROSEMIDE 40 MG/4 ML VIAL IVP SCH (10:23)
--- NOTE | 2017-02-28 10:49 | NUR ---
ADMINISTERED LASIX 20 MG/2ML IVP AT 0844. PER NEW ORDER, ADMINISTERED LASIX 40MG/4ML IVP AT 10:49, VERIFIED BY MD AND PHARMACY. PATIENT'S BP 127/71 HR 73 RR 16 92% O2 SATURATION. PATIENT TOLERATED IT WELL. SAFETY PRECAUTIONS IN PLACE, BED IN LOWEST SETTING, CALL LIGHT WITHIN REACH, WILL CONTINUE TO MONITOR PATIENT.
[2017-02-28] MEDS: INSULIN LISPRO SLIDING SCALE 100 UNITS/ML VIAL SUBQ PRN ×3 (11:47→20:35)
[2017-02-28 12:00] VITALS: BP 128/64
[2017-02-28] MEDS ORDERED: ALBUTEROL SULFATE/IPRATROPIU 3 ML SOL IH SCH (12:00)
[2017-02-28] MEDS ORDERED: DILTIAZEM 60 MG TAB PO SCH (13:00)
--- NOTE | 2017-02-28 15:04 | NUR ---
ADMINISTERED MEDS PER MD ORDER. PATIENT SITTING ON SIDE OF BED, LEGS DANGLING. NO SIGNS OF DISTRESS NOTED. PATIENT DENIES PAIN. FAMILY AT BEDSIDE. SAFETY PRECAUTIONS IN PLACE. WILL CONTINUE TO MONITOR PATIENT.
--- NOTE | 2017-02-28 15:25 | NUR ---
PLEASE REFER TO NUTRITION ASSESSMENT UNDER CARE ACTIVITY FOR ESTIMATED NUTRITIONAL NEEDS. 1.PT TO CONTINUE WITH CURRENT DIET ORDER WITH GOOD TOLERANCE OF NUTRITION SUPPORT FOR GLUCOSE GONTROL. 2. RD TO FOLLOW-UP IN 3-5 DAYS ON 03/05/2017 PATIENT IS MODERATE RISK. EVIE BRENNAN RD
[2017-02-28 16:00] VITALS: BP 108/69
[2017-02-28] MEDS: DILTIAZEM 30 MG TAB PO SCH (17:09)
--- NOTE | 2017-02-28 17:54 | NUR ---
PER AGRICULTURAL PRODUCTION ENGINEER, PATIENT'S HR AT 45. RN ASSESSED, PATIENT SITTING IN CHAIR IN ROOM, NO SIGNS OF DISTRESS OR SOB NOTED. PATIENT DENIES PAIN. BP 112/88 HR 56 O2 SAT 94%. SAFETY PRECAUTIONS IN PLACE. WILL CONTINUE TO MONITOR PATIENT.
--- NOTE | 2017-02-28 19:20 | NUR ---
ENDORSED PT TO THE WINCH RUNNER NURSE AT BEDSIDE FOR CONTINUITY OF CARE. PT IN STABLE CONDITION.
--- NOTE | 2017-02-28 19:21 | NUR ---
PATIENT REPORT RECEIVED FROM MORNING NURSE. PATIENT IS AWAKE, ALERT, AND ORIENTED. NO SIGNS AND SYMPTOMS OF DISTRESS NOTED. PATIENT IS SITTING UP IN CHAIR. IV SITE NOTED ON LEFT HAND, SALINE LOCKED. CALL LIGHT WITHIN REACH. WILL CONTINUE TO MONITOR.
[2017-02-28 20:00] VITALS: BP 123/65
[2017-02-28] MEDS: ACETAMINOPHEN 325 MG TAB PO PRN (20:23)
--- NOTE | 2017-02-28 21:00 | NUR ---
COLACE HELD. PATIENT HAD 3 BOWEL MOVEMENTS DURING MORNING SHIFT
[2017-03-01] VITALS: BP 138/74
--- NOTE | 2017-03-01 | NUR ---
DEEP SUBMERGENCE VEHICLE OPERATOR NOTIFIED ME THAT PATIENTS HEART RATE HAS BEEN RANGING IN THE 45-MID 50S, ALSO THAT HIS HEART RHYTHM CURRENTLY READS JUNCTIONAL RHYTHM. CHECKED ON PATIENT. NO SIGNS AND SYMPTOMS OF DISTRESS NOTED. NOTIFIED DR. NUNN OF HEART RATE AND RHYTHM.
[2017-03-01 04:00] VITALS: BP 116/74
[2017-03-01] MEDS: ALBUTEROL SULFATE/IPRATROPIU 3 ML SOL IH PRN (04:27)
[2017-03-01] MEDS: BLOOD GLUCOSE MONITORING 1 DEV DEV FS SCH ×2 (06:43→11:59)
--- NOTE | 2017-03-01 07:11 | NUR ---
PATIENT REPORT GIVEN TO MORNING NURSE. PATIENT IS IN STABLE CONDITION
--- NOTE | 2017-03-01 07:13 | NUR ---
RECEIVED REPORT FROM THE ORDNANCE ARTIFICER HELPER NURSE AT BEDSIDE FOR CONTINUITY OF CARE. UPDATED THE BOARD. PT IS SITTING ON CHAIR ON THE SIDE OF THE BED GETTING BREATHING TREATMENT. PT HAS A NC O2 2L. PT AMBULATES WITH ASSIST. PT USES THE URINAL. SKIN IS INTACT. PT HAS AN IV L HAND 24G TKO NS AT 3ML/HR. PT'S V/S WITHIN NORMAL RANGE. SAFETY PRECAUTIONS IN PLACE, BED ON LOWEST SETTING, CALL LIGHT WITHIN REACH. WILL CONTINUE TO MONITOR PATIENT.
[2017-03-01 08:00] VITALS: BP 126/87
--- NOTE | 2017-03-01 08:27 | NUR ---
AWAKE AND ALERT NO SOB NOTED PATIENT WITH BREAKFAST TRAY AT THIS TIME DIRECTOR OF COMMUNITY CENTER TO ATTEMPT HHN THERAPY AT A LATER TIME
[2017-03-01 08:30] LABS: ANION GAP 16.4 (8-16); CARBON DIOXIDE 27.6 mmol/L (21-32); CHLORIDE 101 mmol/L (98-107); CREATININE 1.1 mg/dL (0.7-1.3); GLUCOSE 129 mg/dL (74-106); SODIUM SERUM 141 mmol/L (136-145); UREA NITROGEN, BLOOD 44 mg/dL (7-18)
[2017-03-01] MEDS: BUDESONIDE 0.5 MG/2 ML NEBU INH SCH (08:40)
[2017-03-01] MEDS: DOCUSATE SODIUM 100 MG GELCAP PO SCH (08:56)
[2017-03-01] MEDS: DILTIAZEM 30 MG TAB PO SCH (08:56)
[2017-03-01] MEDS: PIOGLITAZONE 30 MG TAB PO SCH (08:57)
[2017-03-01] MEDS: LACTOBACILLUS RHAMNOSUS GG 1 EACH CAP PO SCH (08:57)
[2017-03-01] MEDS ORDERED: FUROSEMIDE 40 MG/4 ML VIAL IVP SCH (09:00)
[2017-03-01] MEDS: POTASSIUM CHLORIDE 20% 40 MEQ/15 ML UDC PO SCH ×2 (09:00→09:05)
--- NOTE | 2017-03-01 09:00 | NUR ---
ADMINISTERED MORNING MEDICATIONS. PATIENT TOLERATED IT WELL. PATIENT SITTING IN CHAIR ON SIDE OF BED. SAFETY PRECAUTIONS IN PLACE. WILL CONTINUE TO MONITOR PATIENT.
[2017-03-01] MEDS: methylPREDNISolone SS 125 MG/2 ML VIAL IVP SCH (09:01)
--- NOTE | 2017-03-01 10:37 | NUR ---
EKG DONE. PATIENT TOLERATED IT WELL. RESULTS: SINUS NOY AT 57 WITH RIGHT BUNDLE BRANCH BLOCK. SAFETY PRECAUTIONS IN PLACE. WILL CONTINUE TO MONITOR PATIENT.
--- NOTE | 2017-03-01 11:49 | NUR ---
PT SITTING IN CHAIR. ADMISSION AT BEDSIDE. PT HAS NO COMPLAINTS. DENIES PAIN, SOB. "EVERYTHING OK" PER PT. WILL CONTINUE TO MONITOR PT.
--- NOTE | 2017-03-01 11:50 | NUR ---
[employer] SUPERINTENDENT MANUEL IN TO SEE PATIENT. WILL AWAIT FOR NEWS. PATIENT SITTING IN CHAIR BY BED. NO SIGNS OF DISTRESS NOTED. PATIENT DENIES PAIN. WILL CONTINUE TO MONITOR PATIENT.
[2017-03-01 12:00] VITALS: BP 133/74
[2017-03-01] MEDS: INSULIN LISPRO SLIDING SCALE 100 UNITS/ML VIAL SUBQ PRN (12:29)
[2017-03-01] MEDS ORDERED: DILTIAZEM 30 MG TAB PO SCH (13:00)
--- NOTE | 2017-03-01 14:00 | NUR ---
PATIENT SITTING IN CHAIR ON SIDE OF BED. PATIENT AMBULATED TO THE BATHROOM WITH ASSIST. SAFETY PRECAUTIONS IN PLACE. WILL CONTINUE TO MONITOR PATIENT.
[2017-03-01] MEDS ORDERED: methylPREDNISolone SS 40 MG/ML VIAL IVP SCH ×2 (14:35→15:30)
[2017-03-01] MEDS ORDERED: MONT10TA35 PO (15:04)
[2017-03-01] MEDS ORDERED: BECL0.0464 INH (15:04)
[2017-03-01] MEDS ORDERED: PRED10TA6 PO (15:07)
[2017-03-01] MEDS ORDERED: ALBU0.0912 IH (15:08)
[2017-03-01] MEDS ORDERED: LISI5TAB18 PO (15:10)
[2017-03-01] MEDS ORDERED: BUDE90PO IH (15:20)
--- NOTE | 2017-03-01 16:30 | NUR ---
DISCHARGE INSTRUCTIONS GIVEN TO PT AND GRANDDAUGHTER. PT AND GRANDDAUGHTER VERBALIZED UNDERSTANDING. REMOVED IV,CANNULA INTACT. REMOVED TELE MONITOR. REMOVED ID BANDS. PT WILL GET DRESSED AND LET ME KNOW WHEN HE IS READY TO LEAVE.
--- NOTE | 2017-03-01 16:35 | NUR ---
WHEELCHAIRED PT OUT ACCOMPANIED BY AND GRANDDAUGHTER. PT IS IN STABLE CONDITION. ALL PERSONAL BELONGINGS WITH PT.
== END 2017-03-01 16:35 | disposition home or self-care (01) | DRG 291 ==
LOC: MED 15:37 → MTU 18:30 → MIC 22:42 → MTU 02-26 19:50
PROVIDERS: ADMIT Student in an Organized Health Care Education/Training Program; ATTEND Student in an Organized Health Care Education/Training Program
PROC: 5A09357 Assistance with Respiratory Ventilation, Less than 24 Consecutive Hours, Continuous Positive Airway Pressure (ICD-10-PCS; principal; 2017-02-24)
PROC: 5A09357 Assistance with Respiratory Ventilation, Less than 24 Consecutive Hours, Continuous Positive Airway Pressure (ICD-10-PCS; 2017-02-24)
DX: I13.0 Hypertensive heart and chronic kidney disease with heart failure and stage 1 through stage 4 chronic kidney disease, or unspecified chronic kidney disease (principal); J96.01 Acute respiratory failure with hypoxia; N17.0 Acute kidney failure with tubular necrosis; I47.2 Ventricular tachycardia; D68.59 Other primary thrombophilia; E11.22 Type 2 diabetes mellitus with diabetic chronic kidney disease; E11.65 Type 2 diabetes mellitus with hyperglycemia; I50.43 Acute on chronic combined systolic (congestive) and diastolic (congestive) heart failure; E87.2 Acidosis; J45.901 Unspecified asthma with (acute) exacerbation; E83.41 Hypermagnesemia; I48.0 Paroxysmal atrial fibrillation; N18.9 Chronic kidney disease, unspecified; E66.9 Obesity, unspecified; E02 Subclinical iodine-deficiency hypothyroidism; D72.828 Other elevated white blood cell count; Z68.28 Body mass index [BMI] 28.0-28.9, adult; Z88.0 Allergy status to penicillin; T38.0X5A Adverse effect of glucocorticoids and synthetic analogues, initial encounter; Y92.89 Other specified places as the place of occurrence of the external cause
CPT/HCPCS: 36415; 36600; 71010; 80048; 80053; 80305; 81003; 82550; 82553; 82803; 82948; 83036; 83605; 83735; 83874; 83880; 84100; 84439; 84443; 84484; 85025; 85610; 85730; 87040; 87081; 87086; 93005; 93925; 93970; 94640; 94660; 96365; 96372; 96375; 99285; J0456; J0692; J0696; J1644; J1815; J1940; J2920; J2930; J3105; J3490; J7030; J7060; J7620; J7626; Q0092

== ENCOUNTER 2018-04-15 04:20 | Inpatient (IN) | payer OTHER ==
[~2018-04-15] VITALS: Ht 170.2 cm; Wt 104.3 kg
[2018-04-15 04:20] VITALS: BP 0/0
[~2018-04-15 04:20] MED LIST: ACET-2619 PO; ACT30 PO; ALBU0.0912 IH; BUDE90PO IH; FURO-572 PO; LISI5TAB18 PO; MONT10TA35 PO; NAPR-54 PO; PRED10TA6 PO
--- NOTE | 2018-04-15 04:20 | NUR ---
Patient being evaluated by physician at bedside.
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
--- NOTE | 2018-04-15 04:20 | NUR ---
SEE CODE SHEET FOR MED ADMINISTRATION AND ROSC; TIMES.
--- NOTE | 2018-04-15 04:49 | NUR ---
EKG PERFORMED AT BEDSIDE.
--- NOTE | 2018-04-15 04:54 | NUR ---
Imani bui in ED - 04/15/18 at 0554 by MAURICE DOPAMINE STARTED AT [facility]. - .
--- NOTE | 2018-04-15 04:54 | NUR ---
LEVOPHED STARTED AT [facility]. BP- 59/30.
--- NOTE | 2018-04-15 04:55 | NUR ---
Imani bui in ED - 04/15/18 at 0554 by MAURICE DOPAMINE TITRATED TO [facility]. BP-/32.
--- NOTE | 2018-04-15 04:55 | NUR ---
LEVOPHED TITRATED TO [facility]. BP-65/32.
--- NOTE | 2018-04-15 04:57 | NUR ---
LEVOPHED TITRATED TO 30[facility].
[2018-04-15 05:20] LABS: ALBUMIN 2.3 g/dL (3.4-5.0); ANION GAP 20.4 (8-16); ASPARTATE AMINOTRANSFERASE 45 U/L (15-37); CHLORIDE 110 mmol/L (98-107); CREATININE 1.4 mg/dL (0.7-1.3); GLUCOSE 296 mg/dL (74-106); POTASSIUM 4.4 mmol/L (3.5-5.1); SODIUM SERUM 147 mmol/L (136-145); TOTAL BILIRUBIN 0.3 mg/dL (0.0-1.0); UREA NITROGEN, BLOOD 15 mg/dL (7-18)
[2018-04-15] MEDS ORDERED: DOPamine 400 MG/D5W PREMIX 250 ML IV ONE (05:20)
--- NOTE | 2018-04-15 05:24 | NUR ---
DOPAMINE INITIATED AT [facility]. BP-70/39.
[2018-04-15 05:25] VITALS: BP 77/41
[2018-04-15] MEDS ORDERED: PROPOFOL 1000 MG/100 ML PREMIX 100 ML IV PRN (05:25)
[2018-04-15] MEDS ORDERED: MORPHINE SULFATE 2 MG/ML SYR IVP PRN (05:25)
[2018-04-15] MEDS ORDERED: ONDANSETRON 4 MG/2 ML VIAL IM/IVP PRN (05:25)
[2018-04-15] MEDS ORDERED: DEXTROSE 50% 50 ML SYR IVP PRN (05:25)
[2018-04-15] MEDS ORDERED: INSULIN LISPRO SLIDING SCALE 100 UNITS/ML VIAL SUBQ PRN (05:25)
--- NOTE | 2018-04-15 05:25 | NUR ---
# 16 FR Hanna catheter using geological technical officer. Immediate return of 75 ml clear, yellow urine noted. Bedside drainage bag placed below level of bladder. Urine sample collected and sent to lab. Pt tolerated procedure well.
--- NOTE | 2018-04-15 05:33 | NUR ---
PATIENT INTUBATED WITH A 7.5 ETT WITH ANCHORFAST. SECURED AT 23 CM AT THE TEETH MIDLINE OF MOUTH. VENT SETTINGS PLACED AT: AC, 500, 18, +5, 70%. VITALS: 95%, RATE 178, PULSE 120, BREATH SOUNDS BILATERALLY PRESENT WITH RALES. SXNED X1 FOR THIN BLOODY SECRETIONS. VENT ALARMS ON AND AUDIBLE. VENT PLUGGED INTO RED OUTLET. AMBU BAG AT BEDSIDE. PATIENT AT 30 DEGREE ANGLE.
--- NOTE | 2018-04-15 05:35 | NUR ---
DOPAMINE TITRATED TO 10MCG. BP-76/40.
[2018-04-15] MEDS ORDERED: DOPamine 400 MG/D5W PREMIX 250 ML IV SCH (05:45)
[2018-04-15 05:54] LABS: HEMATOCRIT 37.1 % (36-52); HEMOGLOBIN 11.4 g/dL (12.0-18.0); MEAN CORPUSCULAR HEMOGLOBIN 31 pg (27-31); MEAN CORPUSCULAR HGB CONC 31 g/dL (33-37); MEAN CORPUSCULAR VOLUME 99.8 fL (80-94); PLATELET COUNT (AUTO) 227 K/uL (140-450); RED BLOOD CELL COUNT(AUTO) 3.71 MIL/uL (4.20-6.10); RED CELL DISTRIBUTION WIDTH 16.1 % (11.6-13.7); WHITE BLOOD COUNT (AUTO) 13.2 K/uL (4.8-10.8)
--- NOTE | 2018-04-15 05:56 | NUR ---
SPOKE TO JT MASTERS OF PT. SHE STATES UNABLE TO WALK D/T DECREASE IN AMBULATION. SHE WILL COME TO THE [facility] AFT 08:00. INFOREMD OF PT CONDITION AND MOVING TO ICU ROOM 1.
[2018-04-15] MEDS ORDERED: DEXT 5% /NACL 0.9% 1,000 ML IV SCH (06:00)
[2018-04-15] MEDS ORDERED: ALBUTEROL SULFATE/IPRATROPIU 3 ML SOL IH PRN (06:00)
[2018-04-15] MEDS: NOREPINEPHRINE 8 MG in DEXTROSE 5% 250 ML IV PRN ×2 (06:03→07:20)
[2018-04-15 06:10] LABS: EOSINOPHILS % (MANUAL) 3 % (0-4); LYMPHOCYTES % (MANUAL) 28 % (20-46); MONOCYTES % (MANUAL) 10 % (5-12)
--- NOTE | 2018-04-15 06:10 | NUR ---
Admited to ICU. Will go to room 1. Belongings list completed. Report to Nanda DENNIS.
--- NOTE | 2018-04-15 06:22 | NUR ---
TRANSPORTED PATIENT FROM ER10 TO ICU BED 1. VENT PLUGGED INTO RED OUTLET. AMBU BAG AT BEDSIDE. VITALS STABLE AND WITHIN NORMAL LIMITS. ENDORSED TO DAY RT.
[2018-04-15 06:23] VITALS: BP 94/61
--- NOTE | 2018-04-15 06:23 | NUR ---
REC'D PT ON [employer] VENT SETTINGS AC 18 VT 500 PEEP 5 FIO2 70% ALARMS ON AND AUDIBLE AND AMBU BAG AT SIDE OF VENT AND VENT IS PLUGGED INTO RED OUTLET, I\L TX GIVEN WITH DUONEB 3ML WITH ADVERSE REACTION POST TX B\S ARE DIMINISHED BILATERALLY, SXN PT MODERATE AMT OF THIN BLOODY SECRETIONS, PT IS ORALLY INTUBATED WITH 7.5 ET TUBE SECURED WITH ANCHOR FAST AT 23CM AT THE LIP, PT IS RESTING
--- NOTE | 2018-04-15 06:30 | NUR ---
PATIENT TRANSFERRED FROM ER TO ICU-1 VIA [facility] WITH 3 ASSISTANCE. PATIENT LETHARGIC, ETT TO VENT SIZE 7,5 WITH VENT SETTING AC MODE RATE 18 FIO2 70%, VT 500, PEEP 5. BILATERAL LUNGS SOUND DIMINISHED NOTED. OGT IN PLACE, PLACEMENT CHECKED. LEFT FEMORAL CENTRAL LINE IN PLACE WITH RUNNING LEVOPHED DRIP IN MAX DOSE, DOPAMINE DRIP 10MCG/KG/MIN AND D5NS 140ML/HR NOTED. HO CATH IN PLACE WITH YELLOW URINE DRAIN TO BAG. TEMP 95.6 NOTED. PUT ON CHARANJIT CUELLAR. DIMINISHED BOWEL SOUND FROM ALL 4 QUADS SKIN IS INTACT. WILL CONTINUE TO MONITOR. Addendum: 04/15/18 at 0751 by [place] Vee RN VITAL SIGNS HR 116, BP 94/61, R 18, O2 SAT 97% NOTED.
[2018-04-15 06:36] LABS: APPEARANCE,URINE CLEAR (CLEAR); BILIRUBIN,URINE NEGATIVE (NEGATIVE); BLOOD, URINE 1+ (NEGATIVE); COLOR,URINE YELLOW (YELLOW); LEUKOCYTE ESTERASE ,URINE TRACE (NEGATIVE); NITRITE, URINE POSITIVE (NEGATIVE); UGLUCOSE NEGATIVE (NEGATIVE)
[2018-04-15 06:39] LABS: RBC,URINE 3-10 (FEW) /HPF (0-5)
[2018-04-15 06:49] LABS: PROTHROMBIN TIME 11.3 secs (10.8-13.4)
[2018-04-15 07:00] VITALS: BP 79/26
[2018-04-15] MEDS ORDERED: ALBUTEROL SULFATE/IPRATROPIU 3 ML SOL IH SCH (07:00)
[2018-04-15] MEDS ORDERED: NOREPINEPHRINE 4 MG/4 ML VIAL IV ONE ×2 (07:10→07:34)
[2018-04-15 07:15] VITALS: BP 74/52
--- NOTE | 2018-04-15 07:15 | NUR ---
RECEIVED REPORT FROM ADVERTISING WRITER NURSE AT BEDSIDE, PT IS UNRESPONSIVE, [place]. PUPILS NONE REACTION TO LIGHT, TEMP 96.4F, HR 111, BP 74/52, RR 18, O2 SAT 90%, FLACC 0, ETT TO VENT WITH SETTING FIO2 70%, R 18, TV 500, PEEP 5, DIMINISHED LUNG SOUND [place]. ST WITH BBB ON CHEMICAL TECHNICIAN, CAPILLARY REFILL >3 SECONDS, LARGE FIRM DISTENDED ABDOMEN NOTED, ACTIVE BOWEL SOUNDS, OGT IN PLACE, F/C IN PLACE WITH CLEAR YELLOW URINE VIA GRAVITY, SKIN IS INTACT, COOL IN TOUCH, CHARANJIT HUGGER IN PLACE, [place]. EXTREMITIES FLACCID NOTED, IV SITE TO RIGHT AC, PATENT AND SL, CENTRAL LINE TO LEFT FEMORAL, TLC, PATENT, RUNNING D5 NS AT 140ML/HR, LEVOPHED AT 30MCG/MIN, AND DOPAMINE AT 25 MCG/MIN. HOB ELEVATED 30 DEGREES, SAFETY MEASURES IN PLACE, WILL CONTINUE TO MONITOR.
--- NOTE | 2018-04-15 07:25 | NUR ---
BEDSIDE REPORT GIVEN TO MORNING NURSENAMRATA. RN FOR CONTINUITY OF CARE.
[2018-04-15 07:30] VITALS: BP 90/48
[2018-04-15] MEDS ORDERED: BLOOD GLUCOSE MONITORING 1 DEV DEV FS SCH (07:30)
--- NOTE | 2018-04-15 07:30 | NUR ---
TELEPHONE CONSENT OBTAINED FOR RIGHT AND LEFT CHEST TUBE PLACEMENT BY PT'S SON JOSE M. 2ND RN WITNESSED CONSENT.
[2018-04-15] MEDS ORDERED: SODIUM BICARBONATE 8.4% PFS 50 MEQ/50 ML SYR IVP ONE (07:34)
[2018-04-15] MEDS ORDERED: EPINEPHrine PFS 0.1 MG/ML SYR IVP ONE (07:34)
[2018-04-15] MEDS ORDERED: methylPREDNISolone SS 125 MG/2 ML VIAL ONE (07:34)
[2018-04-15] MEDS ORDERED: CALCIUM CHLORIDE 10% 100 MG/ML SYR IVP ONE (07:34)
--- NOTE | 2018-04-15 07:37 | NUR ---
PT IS BRADYCARDIA, HR 45, PEA, NO PULSES, CODE BLUE CALLED, CPR STARTED.
--- NOTE | 2018-04-15 07:37 | NUR ---
ROSHAN ROBLES CALLED PT TAKEN OFF VENTILATOR AND BAGGED WITH 100% FIO2 AND CPR WAS STARTED AND ACLS DRUGS GIVEN DR. MCKENNA AND DR. GRACIA AT BEDSIDE PLACING CHEST TUBES ON THE RIGHT AND LEFT CHEST. DR. MCKENNA ENDED CODE AT 0812
--- NOTE | 2018-04-15 07:49 | NUR ---
RIGHT CHEST TUBE INSERTED BY DR. MCKENNA.
--- NOTE | 2018-04-15 07:59 | NUR ---
LEFT CHEST TUBE INSERTED BY DR. MCKENNA DURING THE CODE.
--- NOTE | 2018-04-15 08:12 | NUR ---
PT IS , PRONOUNCED BY NANETTE OBREGON DR. DONE AT BEDSIDE.
--- NOTE | 2018-04-15 08:22 | NUR ---
PATIENT HAS BEEN SCREENED AND CATEGORIZED MODERATE NUTRITION RISK. PATIENT WILL BE SEEN WITHIN 3-5 DAYS OF ADMISSION. 04/17/18[address]
--- NOTE | 2018-04-15 08:40 | NUR ---
CALLED PT'S FAMILY AGAIN, SPOKE TO SONJOSE M TO UPDATE PT'S CONDITION. HE SAID HE WOULD COME.
--- NOTE | 2018-04-15 08:47 | NUR ---
CALLED [facility], SPOKE TO JACOB, . WILL CALLED BACK TO UPDATE.
--- NOTE | 2018-04-15 09:10 | NUR ---
PT'S SON JOSE M CAME IN, DR. FORD SPOKE TO HIM AND UPDATED THE CONDITION. PT IS GOING TO [facility] IN [place] PER SON.
--- NOTE | 2018-04-15 09:25 | NUR ---
[facility] CALLED BACK, STATED PT IS NOT GOING TO BE THEIR CASE, IT IS OK TO RELEASE THE BODY.
--- NOTE | 2018-04-15 10:45 | NUR ---
ROCKET ENGINE COMPONENT MECHANIC OFFICER LIZBETH MCNULTY CALLED BACK, STATED PT'S BODY IS RELEASED BY ROCKET ENGINE COMPONENT MECHANIC, .
--- NOTE | 2018-04-15 12:00 | NUR ---
CALLED [facility] REGARDING THE PT'S INFORMATION, AND PT'S SON AUTHORIZED TO RELEASE THE BODY TO THEM, ESTIMATED SENIOR DATA MINING ANALYST TIME IN 2 HOURS.
[2018-04-15] MEDS ORDERED: PIPER/TAZO 3.375GM/D5W PREMIX 50 ML IV SCH (13:00)
--- NOTE | 2018-04-15 13:36 | NUR ---
[facility]
[2018-04-15 18:06] LABS: CHOL/HDL RATIO 2.5 (1-4.5); MAGNESIUM 2.4 mg/dL (1.8-2.4)
[2018-04-15 18:07] LABS: THYROID STIMULATING HORMONE 1.03 uIU/mL (0.34-3.74)
[2018-04-15 18:09] LABS: PHOSPHORUS 11.4 mg/dL (2.5-4.9)
== END 2018-04-15 08:12 | disposition expired | DRG 208 ==
LOC: MED 04:20 → MIC 05:39
PROVIDERS: ADMIT General Practice; ATTEND General Practice
PROC: 5A12012 Performance of Cardiac Output, Single, Manual (ICD-10-PCS; principal; 2018-04-15)
PROC: 06HY33Z Insertion of Infusion Device into Lower Vein, Percutaneous Approach (ICD-10-PCS; 2018-04-15)
PROC: 5A1935Z Respiratory Ventilation, Less than 24 Consecutive Hours (ICD-10-PCS; 2018-04-15)
PROC: 0BH17EZ Insertion of Endotracheal Airway into Trachea, Via Natural or Artificial Opening (ICD-10-PCS; 2018-04-15)
DX: J96.90 Respiratory failure, unspecified, unspecified whether with hypoxia or hypercapnia (principal); J18.9 Pneumonia, unspecified organism; N17.0 Acute kidney failure with tubular necrosis; J93.9 Pneumothorax, unspecified; N39.0 Urinary tract infection, site not specified; E87.0 Hyperosmolality and hypernatremia; I46.9 Cardiac arrest, cause unspecified; E11.65 Type 2 diabetes mellitus with hyperglycemia; D64.9 Anemia, unspecified; Z88.0 Allergy status to penicillin; J44.9 Chronic obstructive pulmonary disease, unspecified; I10 Essential (primary) hypertension
CPT/HCPCS: 31500; 36415; 36556; 51702; 71045; 80053; 81001; 82150; 83036; 83605; 83690; 83735; 83880; 84100; 84443; 84484; 85025; 85610; 85730; 86886; 86900; 86901; 87040; 87086; 92950; 93005; 94640; 96365; 99291; J0171; J2930; J3490; J7042; J7060; J7620; Q0092